=== PATIENT | male | born 1980 | race African-American/Black ===

== ENCOUNTER 2018-01-14 05:27 | Emergency (ER) | payer OTHER ==
[~2018-01-14] VITALS: Ht 215.9 cm; Wt 85.5 kg
[~2018-01-14 05:27] MED LIST: ADULT GLYCERIN1 EACH PR; CITRATE OF MAG296 ML PO; FLEET ENEMA EX230 ML PR; FLEXERIL5 MG PO; KLONOPIN0.5 M1 PO; LAMICTAL100 MG PO; MILK OF MAGN PO; MOTRIN800 MG PO; NOHOMEMEDS; OMEPRAZOLE40 M1 PO; PERCOCET 5/31 TABLET PO; TOPAMAX50 MG PO; ZANTAC150 M1 PO; ZYRTEC10 M2 PO
[2018-01-14 07:11] VITALS: BP 137/85
== END 2018-01-14 07:12 | disposition home or self-care (01) ==
LOC: EME 05:27
DX: G43.909 Migraine, unspecified, not intractable, without status migrainosus (principal); I10 Essential (primary) hypertension; G40.909 Epilepsy, unspecified, not intractable, without status epilepticus; F17.200 Nicotine dependence, unspecified, uncomplicated; Z88.5 Allergy status to narcotic agent
CPT/HCPCS: 99281; 99285; J1200; J1885; J2765; J7030